=== PATIENT | male | born 1995 | race Caucasian/White ===

== ENCOUNTER 2016-04-26 19:59 | Emergency (ER) | payer MEDICAID ==
[2016-04-27] MEDS ORDERED: NICOTINE 21 MG PATCH TOP STA (00:21)
[2016-04-27] MEDS ORDERED: NICOTINE 21 MG PATCH TOP ONE (00:22)
[2016-04-27] MEDS ORDERED: LORazepam 0.5 MG TABLET PO STA (00:28)
[2016-04-27] MEDS ORDERED: LORazepam 0.5 MG TABLET ONE (00:32)
== END 2016-04-27 09:56 ==
DX: F32.9 Major depressive disorder, single episode, unspecified (principal); F41.9 Anxiety disorder, unspecified; F40.00 Agoraphobia, unspecified; F43.10 Post-traumatic stress disorder, unspecified; F41.0 Panic disorder [episodic paroxysmal anxiety]; F17.200 Nicotine dependence, unspecified, uncomplicated
CPT/HCPCS: 36415; 80053; 80306; 80307; 80320; 80329; 83690; 85025; 99283; 99285; A9270

== ENCOUNTER 2016-05-31 19:11 | Emergency (ER) | payer MEDICAID | END 2016-05-31 19:41 | disposition home or self-care (01) | DX: H60.501 Unspecified acute noninfective otitis externa, right ear (principal); F17.200 Nicotine dependence, unspecified, uncomplicated ==

== ENCOUNTER 2016-09-05 14:32 | Outpatient (CLI) | payer MEDICAID ==
[2016-09-07 15:06] LABS: TREPONEMA AB IGG NEGATIVE (())
[2016-09-07 23:56] LABS: HSV 1/2 IGM INDEX <0.90 INDEX (()); HSV 2 IGG INDEX <0.90 INDEX (())
== END 2016-09-05 14:33 ==
LOC: LAB.N 14:32
PROVIDERS: ATTEND Physician Assistant
DX: Z11.3 Encounter for screening for infections with a predominantly sexual mode of transmission (principal)
CPT/HCPCS: 36415; 86694; 86695; 86696; 86780; 86803; 87389; 87491; 87591

== ENCOUNTER 2016-10-21 17:19 | Emergency (ER) | payer MEDICAID ==
--- NOTE | 2016-10-21 18:02 | ED Physician Documentation ---
PD HPI FOCAL NEURO - Stated complaint Stated Complaint: STROKE LIKE SYMPTOMS - Chief complaint Chief Complaint: Neuro - History obtained from History obtained from: Patient - History of Present Illness Timing - onset: Other (This is a 21-year-old with very high anxiety who for the last month has had waxing and waning but fairly constant noticing mild right facial droop and numbness associated with intermittent head headaches and chest pains. He describes the chest pain is like being stabbed with a knife, usually briefly, usually at rest and often in different positions, usually on the left side of the chest. And he has lancinating headaches that last seconds at a time.) Review of Systems Constitutional: denies: Fever, Chills Eyes: denies: Loss of vision, Decreased vision, Photophobia, Discharge, Irritation Ears: denies: Loss of hearing, Ear pain Nose: denies: Rhinorrhea / runny nose, Sinus pressure / pain Cardiac: denies: Palpitations Respiratory: denies: Dyspnea, Cough GI: denies: Abdominal Pain PD PAST MEDICAL HISTORY - Past Medical History Cardiovascular: None Respiratory: None Neuro: None Endocrine/Autoimmune: None GI: None : None HEENT: None Psych: Anxiety, Panic attacks, Post traumatic stress disorder Musculoskeletal: None Derm: None - Past Surgical History Past Surgical History: Yes - Present Medications Home Medications: Ambulatory Orders Medication Instructions Recorded Confirmed hydrOXYzine PAMOATE [Vistaril] 50 mg PO HS #20 capsule 02/05/16 04/26/16 Neomycin/Polymyx/Hc Otic Drops 4 drops OT TID 7 Days 05/31/16 [Cortisporin Ear Susp] Risperidone 2 mg PO DAILY #14 tablet 05/31/16 Sertraline HCl 150 mg PO DAILY #21 tablet 05/31/16 - Allergies Allergies/Adverse Reactions: Allergies Allergy/AdvReac Type Severity Reaction Status Date / Time No Known Drug Allergies Allergy Verified 10/21/16 17:24 - Social History Does the pt smoke?: Yes Smoking Status: Current every day smoker Does the pt drink ETOH?: Yes Does the pt have substance abuse?: No - Immunizations Immunizations are current?: Yes - POLST Patient has POLST: No PD ED PE NORMAL - Vitals Vital signs reviewed: Yes - General General: Alert and oriented X 3, No acute distress - HEENT HEENT: PERRL, EOMI, Moist mucous membranes, Pharynx benign - Neck Neck: Supple, no meningeal sign, No bony TTP - Cardiac Cardiac: RRR, No murmur - Respiratory Respiratory: No respiratory distress, Clear bilaterally - Back Back: No CVA TTP, No spinal TTP - Derm Derm: Normal color, Warm and dry, No rash - Neuro Neuro: Alert and oriented X 3, No motor deficit, No sensory deficit, Normal speech - Psych Psych: Normal mood, Normal affect NIHSS - Time Time: 17:52 - Level of Consciousness Level of consciousness: (0) Alert, Keenly responsive LOC Questions: (0) Answers both Q's correct LOC Commands: (0) Performs both correctly - Gaze Best Gaze: (0) Normal - Visual Visual: (0) No loss - Facial Palsy Facial Palsy: (0) Normal, symmetrical movement - Motor Arms (both separate) Motor Arm (right): (0) No drift Motor Arm (left): (0) No drift - Motor Legs (both separate) Motor Leg (right): (0) No drift Motor Leg (left): (0) No drift - Limb Ataxia Limb Ataxia: (0) Absent - Sensory Sensory: (1) [id number] loss (Right face, only over the cheek, not over the neck or forehead) - Best Language Best Language: (0) No aphasia - Dysarthria Dysarthria: (0) Normal - Extinction and Inattention (formally neg Extinction and inattention: (0) No abnormality - Total Score/Results Total Score/Result: 1 Results - Vitals Vitals: Vital Signs - 24 hr 10/21/16 17:21 Temperature 36.6 C Heart Rate 85 Respiratory 18 Rate Blood Pressure 148/93 H O2 Saturation 99 Oxygen O2 Source Room air - EKG (time done) 1819 Rate: Rate (enter#) (81) Rhythm: NSR [place]: Normal Intervals: Normal [place] QRS: Normal Ischemia: Normal ST segments Computer interpretation: Agree with computer - Rads (name of study) CT Head Radiology: EMP read contemporaneously (normal) PD MEDICAL DECISION MAKING - ED course ED course: 21-year-old gentleman with very high anxiety presents with mild neurologic symptoms in the setting of a relatively unremarkable examination, normal head CT and EKG. He felt reassured. The patient and family were counseled as to the diagnosis and need for follow- up. I counseled the patient with regard to signs and symptoms that would necessitate an urgent reevaluation in the emergency department. They understand they are welcome to return at any time if worse or if not improving as expected. This document was made in part using voice recognition software. While efforts are made to proofread this documents, sound alike and grammatical errors may occur. Departure - Departure Disposition: 01 Home, Self Care Clinical Impression: Right facial numbness Condition: Good Record reviewed to determine appropriate education?: Yes Instructions: ED Paraesthesias Comments: Call your doctor to arrange a follow-up appointment, make the next available appointment. In the interim, return anytime if worse or if new symptoms develop. Your blood pressure was elevated today on check into the emergency department. This does not mean that you have hypertension, it is a common phenomenon to come to the emergency department and have elevated blood pressure. I recommend that she see her primary care physician within the week to have it rechecked when you are feeling better.
--- NOTE | 2016-10-21 18:51 | CT Preliminary Report ---
Exam: CT Head W/O IMPRESSION: Normal head CT. [facility] SITE ID: [id number]
--- NOTE | 2016-10-21 18:55 | CT Report ---
EXAM: CT HEAD EXAM DATE: 10/21/2016 06:11 PM. CLINICAL HISTORY: Right facial numbness. COMPARISON: None. TECHNIQUE: Multiaxial CT images were obtained from the foramen magnum to the vertex. IV contrast: Non e. Reformats: Coronal. In accordance with CT protocol optimization, one or more of the following dose reduction techniques w ere utilized for this exam: automated exposure control, adjustment of mA and/or KV based on patient s ize, or use of iterative reconstructive technique. FINDINGS: Parenchyma: No intraparenchymal hemorrhage. No evidence of mass, midline shift, or CT findings of inf arction. Wall-white differentiation is distinct. Extraaxial Spaces: Normal for age. No subdural or epidural collections identified. Ventricles: Normal in size and position. Sinuses: Imaged paranasal sinuses, orbits, and mastoids show no significant abnormality. Bones: No evidence of fracture or calvarial defect. Other: None. IMPRESSION: Normal head CT. [facility] Referring Provider Line: [phone] SITE ID: [id number]
[2016-10-21 19:04] VITALS: BP 120/80
== END 2016-10-21 19:02 | disposition home or self-care (01) ==
LOC: ED 17:19
DX: R20.0 Anesthesia of skin (principal); R03.0 Elevated blood-pressure reading, without diagnosis of hypertension; F17.200 Nicotine dependence, unspecified, uncomplicated
CPT/HCPCS: 70450; 93005; 99282; 99284

== ENCOUNTER 2017-11-29 14:33 | Emergency (ER) | payer MEDICAID ==
[2017-11-29] MEDS ORDERED: DEXAMETHASONE 10 MG/ML VIAL PO STA (15:04)
--- NOTE | 2017-11-29 15:06 | ED Physician Documentation ---
PD HPI HEENT - Stated complaint Stated Complaint: SORE THROAT,FEVER - Chief complaint Chief Complaint: Heent - History obtained from History obtained from: Patient - History of Present Illness Timing - onset: How many weeks ago (1) Timing - duration: Weeks (1) Timing - details: Gradual onset, Still present Location: Nose, Throat Improves: Medication Worsens: Swalllowing Associated symptoms: Congestion, Rhinorrhea, Unable to swallow, Swollen nodes, Headache, Cough Similar symptoms before: Diagnosis (URI) Recently seen: Not recently seen - Additional information Additional information: 22 y/o male with a one week history of cough congestion and sore throat. This morning he choked on phlem and felt that he was going to . Review of Systems Constitutional: reports: Chills, Fatigue. denies: Fever Eyes: denies: Decreased vision Ears: denies: Ear pain Nose: reports: Rhinorrhea / runny nose, Congestion Throat: reports: Sore throat Cardiac: denies: Chest pain / pressure, Palpitations Respiratory: reports: Dyspnea, Cough, Wheezing GI: denies: Abdominal Pain, Nausea, Vomiting : denies: Dysuria, Frequency PD PAST MEDICAL HISTORY - Past Medical History Past Medical History: Yes Cardiovascular: None Respiratory: None Endocrine/Autoimmune: None GI: None : None HEENT: None Psych: Anxiety, Panic attacks, Post traumatic stress disorder Musculoskeletal: None Derm: None - Past Surgical History Past Surgical History: Yes - Present Medications Home Medications: Ambulatory Orders Medication Instructions Recorded Confirmed RX: hydrOXYzine PAMOATE [Vistaril] 50 mg PO HS #20 capsule 02/05/16 04/26/16 Neomycin/Polymyx/Hc Otic Drops 4 drops OT TID 7 Days bottle 05/31/16 [Cortisporin Ear Susp] RX: Sertraline HCl 150 mg PO DAILY #21 tablet 05/31/16 RX: risperiDONE [Risperidone] 2 mg PO DAILY #14 tablet 05/31/16 RX: Albuterol Sulf [Ventolin Hfa 1 - 2 puffs INH Q4HR PRN #1 inhaler 11/29/17 Inhaler] RX: Amoxicillin 875 mg PO BID #20 tablet 11/29/17 - Allergies Allergies/Adverse Reactions: Allergies Allergy/AdvReac Type Severity Reaction Status Date / Time No Known Drug Allergies Allergy Verified 10/21/16 17:24 - Social History Does the pt smoke?: Yes Smoking Status: Current every day smoker Does the pt drink ETOH?: Yes Does the pt have substance abuse?: No - Immunizations Immunizations are current?: Yes - POLST Patient has POLST: No PD ED PE NORMAL - Vitals Vital signs reviewed: Yes (normal ) - General General: Alert and oriented X 3, No acute distress, Well developed/nourished - HEENT HEENT: Atraumatic, PERRL, EOMI, Other (both TM's are inflammed midly the left more so in the attic. The pharynx is with general inflamation and no exudate. There is a tiny amount of residual tonsil tissue on the right. ) - Neck Neck: Supple, no meningeal sign, No bony TTP, Other (tender submandibular adenopathy ) - Cardiac Cardiac: RRR, No murmur - Respiratory Respiratory: No respiratory distress, Other (scattered wheezes and rhonchi throughout. ) - Abdomen Abdomen: Soft - Back Back: No CVA TTP, No spinal TTP - Derm Derm: Normal color, Warm and dry, No rash - Extremities Extremities: No deformity, No edema - Neuro Neuro: Alert and oriented X 3, history department chair 2-12 intact, No motor deficit, No sensory deficit, Normal speech Eye Opening: Spontaneous Motor: Obeys Commands Verbal: Oriented GCS Score: 15 - Psych Psych: Normal mood, Normal affect Results - Vitals Vitals: Vital Signs - 24 hr 11/29/17 14:43 Temperature 36.5 C Heart Rate 86 Respiratory 16 Rate Blood Pressure 126/69 O2 Saturation 98 Oxygen O2 Source Room air PD MEDICAL DECISION MAKING - ED course Complexity details: reviewed results, re-evaluated patient, considered differential, d/w patient ED course: 22 y/o male with strep is given decadron in the ED and we will place him on some amoxicillin and an inhaler. - Sepsis Event Vital Signs: Vital Signs - 24 hr 11/29/17 14:43 Temperature 36.5 C Heart Rate 86 Respiratory 16 Rate Blood Pressure 126/69 O2 Saturation 98 Oxygen O2 Source Room air Departure - Departure Disposition: 01 Home, Self Care Clinical Impression: Otitis media, Strep pharyngitis Condition: Stable Instructions: ED Otitis Media Acute Adult, ED Strep Pharyngitis Conf Follow-Up: [facility] [Provider Group] Prescriptions: RX: Albuterol Sulf [Ventolin Hfa Inhaler] 1 - 2 puffs INH Q4HR PRN #1 inhaler PRN Reason: Shortness Of Air/Wheezing RX: Amoxicillin 875 mg PO BID #20 tablet Discharge Date/Time: 11/29/17 15:27
[2017-11-29 15:27] VITALS: BP 117/68
== END 2017-11-29 15:27 | disposition home or self-care (01) ==
LOC: ED 14:33
DX: H66.90 Otitis media, unspecified, unspecified ear (principal); J02.0 Streptococcal pharyngitis; F17.200 Nicotine dependence, unspecified, uncomplicated
CPT/HCPCS: 87430; 99283

== ENCOUNTER 2018-07-08 13:24 | Outpatient (CLI) | payer MEDICAID ==
[2018-07-09 13:13] LABS: HEPATITIS C ANTIBODY NON-REACTIVE (NON-REACTIVE)
[2018-07-09 13:21] LABS: HIV AG/AB 4TH GEN NON-REACTIVE (NON-REACTIVE)
[2018-07-10 14:31] LABS: HSV 2 IGG TYPE SPECIFIC AB <0.90 index
== END 2018-07-08 23:59 | disposition home or self-care (01) ==
LOC: LAB.N 13:24
PROVIDERS: ATTEND Family Medicine
DX: Z11.3 Encounter for screening for infections with a predominantly sexual mode of transmission (principal)
CPT/HCPCS: 36415; 81599; 86592; 86695; 86696; 86803; 87389; 87491; 87591; 87661

== ENCOUNTER 2018-08-25 15:30 | Outpatient (CLI) | payer MEDICAID | END 2018-08-25 23:59 | disposition home or self-care (01) | LOC: LAB.R 15:30 | PROVIDERS: ATTEND Family Medicine | DX: J02.9 Acute pharyngitis, unspecified (principal) | CPT/HCPCS: 87070; 87077 ==

== ENCOUNTER 2018-09-07 08:00 | Outpatient (CLI) | payer MEDICAID | END 2018-09-07 23:35 | disposition home or self-care (01) | LOC: LAB.N 08:00 | PROVIDERS: ATTEND Family Medicine | DX: J02.9 Acute pharyngitis, unspecified (principal) | CPT/HCPCS: 36415; 86308 ==

== ENCOUNTER 2018-09-30 14:04 | Emergency (ER) | payer MEDICAID ==
[2018-09-30 14:09] VITALS: BP 123/71
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
--- NOTE | 2018-09-30 15:45 | XRAY Report ---
Reason: L rib pain Procedure Date: 09/30/2018 Accession Number: [id number] / [id number] Procedure: XR - Ribs w/PA Chest LT CPT Code: FULL RESULT: EXAM: LEFT RIB RADIOGRAPHY EXAM DATE: 09/30/2018 03:35 PM. CLINICAL HISTORY: L rib pain. COMPARISON: None. TECHNIQUE: 1 view of the chest and 2 views of the ribs. FINDINGS: Bones: Normal. No fracture or bone lesion. Lungs: No focal opacities. No pneumothorax. No pleural effusions. Mediastinum: Heart and mediastinal contours are unremarkable. Other: None. IMPRESSION: No acute displaced rib fracture or pneumothorax. [facility]
== END 2018-09-30 16:18 | disposition home or self-care (01) ==
LOC: ED 14:04
DX: S20.212A Contusion of left front wall of thorax, initial encounter (principal); W50.0XXA Accidental hit or strike by another person, initial encounter; Y93.71 Activity, boxing; F17.200 Nicotine dependence, unspecified, uncomplicated
CPT/HCPCS: 99282; 99283

== ENCOUNTER 2020-01-11 18:39 | Outpatient (CLI) | payer MEDICAID | END 2020-01-11 18:40 | disposition home or self-care (01) | LOC: COV 18:39 | PROVIDERS: ATTEND Family Medicine | DX: R50.9 Fever, unspecified (principal); Z20.828 Contact with and (suspected) exposure to other viral communicable diseases; R05 Cough; R06.02 Shortness of breath; M79.10 Myalgia, unspecified site; R53.83 Other fatigue; J02.9 Acute pharyngitis, unspecified; R09.81 Nasal congestion ==

== ENCOUNTER 2020-01-21 06:16 | Emergency (ER) | payer MEDICAID ==
--- NOTE | 2020-01-21 07:27 | ED Physician Documentation ---
History of Present Illness - Stated complaint Stated Complaint: HEART FLUTTERING - Chief complaint Chief Complaint: Cardiac - History obtained from History obtained from: Patient - History of Present Illness Timing: Today Pain level max: 0 Pain level now: 0 - Additonal information Additional information: 24-year-old male presents to the emergency department stating that he felt a fluttering in his chest today. He states that he felt his pulse and felt like his heart was skipping. Nothing makes it better or worse. He does smoke, drink alcohol, and use marijuana. No chest pain. No shortness of breath. No nausea or vomiting. Currently is not on any medications. Review of Systems Constitutional: denies: Fever, Chills Nose: denies: Rhinorrhea / runny nose, Congestion Throat: denies: Sore throat Cardiac: reports: Palpitations. denies: Chest pain / pressure Respiratory: denies: Cough GI: denies: Vomiting, Diarrhea Skin: denies: Rash Musculoskeletal: denies: Neck pain, Back pain Neurologic: denies: Headache PD PAST MEDICAL HISTORY - Past Medical History Past Medical History: Yes Cardiovascular: None Respiratory: None Endocrine/Autoimmune: None GI: None : None HEENT: None Psych: Anxiety, Panic attacks, Post traumatic stress disorder Musculoskeletal: None Derm: None - Past Surgical History Past Surgical History: Yes - Present Medications Home Medications: Ambulatory Orders Medication Instructions Recorded Confirmed No Known Home Medications 09/30/18 01/21/20 - Allergies Allergies/Adverse Reactions: Allergies Allergy/AdvReac Type Severity Reaction Status Date / Time acetaminophen [From Vicodin] Allergy Itching Verified 01/21/20 06:26 hydrocodone [From Vicodin] Allergy Itching Verified 01/21/20 06:26 - Social History Does the pt smoke?: Yes Smoking Status: Current every day smoker Does the pt drink ETOH?: Yes Does the pt have substance abuse?: Yes Substance Use and Type: Marijuana - Immunizations Immunizations are current?: Yes - POLST Patient has POLST: No PD ED PE NORMAL - Vitals Vital signs reviewed: Yes - General General: Alert and oriented X 3, No acute distress, Well developed/nourished - HEENT HEENT: PERRL, Moist mucous membranes - Neck Neck: Supple, no meningeal sign - Cardiac Cardiac: RRR, No murmur, Strong equal pulses - Respiratory Respiratory: No respiratory distress, Clear bilaterally - Abdomen Abdomen: Soft, Non tender, Non distended - Derm Derm: Warm and dry - Extremities Extremities: No edema, No calf tenderness / cord - Neuro Neuro: Alert and oriented X 3 - Psych Psych: Normal mood, Normal affect Results - Vitals Vitals: Vital Signs - 24 hr 01/21/20 01/21/20 01/21/20 06:20 06:32 07:30 Temperature 36.9 C 37.1 C Heart Rate 88 88 72 Respiratory 14 14 16 Rate Blood Pressure 123/77 128/72 114/70 O2 Saturation 99 99 97 01/21/20 08:05 Temperature Heart Rate 70 Respiratory 16 Rate Blood Pressure 112/69 O2 Saturation 97 Oxygen O2 Source Room air - EKG (time done) 0625 Rate: Rate (enter#) (80) Rhythm: NSR [place]: Normal Intervals: Normal [place] QRS: Normal Ischemia: Normal ST segments - Labs Labs: Laboratory Tests 01/21/20 01/21/20 06:01 06:01 WBC 7.6 RBC 4.49 L Hgb 14.5 Hct 42.6 MCV 94.9 H MCH 32.3 H MCHC 34.0 RDW 13.2 Plt Count 321 MPV 8.3 Neut # (Auto) 4.1 Lymph # (Auto) 2.4 [place] # (Auto) 0.8 Eos # (Auto) 0.2 Baso # (Auto) 0.1 Absolute Nucleated RBC 0.00 Nucleated RBC % 0.0 Sodium 138 Potassium 4.0 Chloride 103 Carbon Dioxide 25 Anion Gap 10.0 BUN 15 Creatinine 0.8 Estimated GFR (MDRD) 117 Glucose 97 Calcium 8.9 Phosphorus 4.5 Magnesium 2.4 PD MEDICAL DECISION MAKING - ED course Complexity details: reviewed results, re-evaluated patient, considered differential, d/w patient ED course: 24-year-old male presents to the emergency department palpitations today. Has premature ventricular and atrial contractions on the monitor. No significant lab abnormalities. No evidence of lethal arrhythmia. No acute findings on EKG. We will have him follow-up with his doctor for further care. Patient counseled regarding signs and symptoms for which I believe and urgent re-evaluation would be necessary. Patient with good understanding of and agreement to plan and is comfortable going home at this time This document was made in part using voice recognition software. While efforts are made to proofread this document, sound alike and grammatical errors may occur. Departure - Departure Disposition: 01 Home, Self Care Clinical Impression: Palpitations, PAC (premature atrial contraction), PVC (premature ventricular contraction) Condition: Good Instructions: ED Palpitations Follow-Up: SULAIMAN WHITE PA-C [Primary Care Provider] - Within 1 week Comments: You appear to be having premature atrial and ventricular contractions. These are not dangerous. Avoid stimulants. Return if you worsen.
[2020-01-21 07:44] LABS: BASOPHILS # (AUTO) 0.1 10^3/uL (0.0-0.1); BASOPHILS % (AUTO) 0.8 %; EOSINOPHILS # (AUTO) 0.2 10^3/uL (0.0-0.7); EOSINOPHILS % (AUTO) 3.1 %; HGB - HEMOGLOBIN 14.5 g/dL (14.0-18.0); LYMPHOCYTES # (AUTO) 2.4 10^3/uL (1.5-3.5); MEAN CORPUSCULAR HEMOGLOBIN 32.3 pg (27.0-31.0); MEAN CORPUSCULAR VOLUME 94.9 fL (80.0-94.0); MEAN PLATELET VOLUME 8.3 fL (7.4-11.4); MONOCYTES # (AUTO) 0.8 10^3/uL (0.0-1.0); MONOCYTES % (AUTO) 10.7 %; NEUTROPHILS # (AUTO) 4.1 10^3/uL (1.5-6.6); NEUTROPHILS % (AUTO) 53.6 %; PLT - PLATELET COUNT 321 10^3/uL (130-450); RED BLOOD COUNT 4.49 10^6/uL (4.70-6.10); RED CELL DISTRIBUTION WIDTH 13.2 % (12.0-15.0); WHITE BLOOD COUNT 7.6 x10^3/uL (4.8-10.8)
[2020-01-21 07:59] LABS: CALCIUM 8.9 mg/dL (8.5-10.3); CREATININE 0.8 mg/dL (0.6-1.2); MAGNESIUM 2.4 mg/dL (1.7-2.8); PHOSPHORUS 4.5 mg/dL (2.5-4.6)
[2020-01-21 08:06] VITALS: BP 112/69
== END 2020-01-21 08:24 | disposition home or self-care (01) ==
LOC: ED 06:16
DX: I49.1 Atrial premature depolarization (principal); I49.3 Ventricular premature depolarization; F17.200 Nicotine dependence, unspecified, uncomplicated
CPT/HCPCS: 36415; 80048; 83735; 84100; 85025; 93005; 99283; 99284

== ENCOUNTER 2020-01-23 06:07 | Outpatient (CLI) | payer MEDICAID | END 2020-01-23 06:08 | disposition EMS.NT | LOC: EMS 06:07 | PROVIDERS: ATTEND Surgery | DX: I49.8 Other specified cardiac arrhythmias (principal) ==